=== PATIENT | female | born 1990 | race Caucasian/White ===

== ENCOUNTER 2016-12-24 08:18 | Emergency (ER) | payer OTHER ==
[2016-12-24 09:06] VITALS: BP 152/93
--- NOTE | 2016-12-24 09:11 | ED ---
Throat Pain/Nasal Congestion - HPI Summary HPI Summary: 26 yr old with onset of sneezing, sore throat, congestion a day ago. 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 She denies fever or chills. Denies SOB. She has pain moderate intensity. She has associated feeling of fatigue. No NVD. - History of Current Complaint Chief Complaint: UCRespiratory Time Seen by Provider: 12/24/16 08:44 - Allergies/Home Medications Allergies/Adverse Reactions: Allergies Allergy/AdvReac Type Severity Reaction Status Date / Time Azithromycin AdvReac Intermediate GI Upset Verified 12/24/16 08:33 [From Zithromax Z-Marky] orange food dye Allergy Headache Uncoded 12/24/16 08:34 potential peanut Allergy See Comment Uncoded 12/24/16 08:34 Home Medications: Home Medications Albuterol HFA INHALER* [Ventolin HFA Inhaler*] 2 puff INH Q12H PRN 12/24/16 [ History Confirmed 12/24/16] Ascorbic Acid TAB* [Vitamin C TAB*] 500 mg PO ONCE 12/24/16 [History Confirmed 12/24/16] Loratadine [Alavert] 10 mg PO DAILY 12/24/16 [History Confirmed 12/24/16] Omeprazole CAP* [Prilosec CAP* 20 MG] 10 mg PO DAILY 12/24/16 [History Confirmed 12/24/16] Pseudophed D 1 tab PO Q12H PRN 12/24/16 [History Confirmed 12/24/16] PMH/Surg Hx/FS Hx/Imm Hx GI History: Denies: Hx Gall Bladder Disease, Hx Gastrointestinal Bleed, Hx Urosepsis History: Denies: Hx Kidney Stones, Hx Renal Disease - Surgical History Surgery Procedure, Year, and Place: dental, right ulnar nerve Infectious Disease History: Yes Infectious Disease History: Reports: Hx of Known/Suspected MRSA - hip [facility] Denies: Hx Clostridium Difficile, Hx Hepatitis, Hx Human Immunodeficiency Virus (HIV), Hx Shingles, Hx Tuberculosis, Hx Known/Suspected VRE, Hx Known/ Suspected VRSA, History Other Infectious Disease, Traveled Outside the [place] in Last 30 Days - Family History Known Family History: Positive: Other - no FH GI disorders - Social History Alcohol Use: Occasionally Substance Use Type: Reports: None Smoking Status (MU): Never Smoked Tobacco Review of Systems Positive: Fatigue. Negative: Fever Positive: Sore Throat, Nasal Discharge All Other Systems Reviewed And Are Negative: Yes Physical Exam Triage Information Reviewed: Yes Vital Signs On Initial Exam: Initial Vitals Temp Pulse Resp BP Pulse Ox 98.1 F 109 20 152/93 100 12/24/16 08:24 12/24/16 08:24 12/24/16 08:24 12/24/16 08:24 12/24/16 08:24 Vital Signs Reviewed: Yes Appearance: Positive: Well-Appearing, No Pain Distress Skin: Positive: Skin Color Reflects Adequate Perfusion Head/Face: Positive: Normal Head/Face Inspection Eyes: Positive: EOMI ENT: Positive: Normal ENT inspection, Pharynx normal, Nasal congestion, TMs normal Neck: Positive: Supple, Nontender. Negative: Nuchal Rigidity Respiratory/Lung Sounds: Positive: Clear to Auscultation, Breath Sounds Present Cardiovascular: Positive: RRR. Negative: Murmur Abdomen Description: Positive: Nontender Musculoskeletal: Positive: Strength/ROM Intact Neurological: Positive: Sensory/Motor Intact, Alert, Oriented to Person Place, Time, CN Intact II-III, Speech Normal Psychiatric: Positive: Normal - Indra Coma Scale Best Eye Response: 4 - Spontaneous Best Motor Response: 6 - Obeys Commands Best Verbal Response: 5 - Oriented Diagnostics - Vital Signs Vital Signs Temp Pulse Resp BP Pulse Ox 12/24/16 08:24 98.1 F 109 20 152/93 100 - Laboratory Lab Statement: Any lab studies that have been ordered have been reviewed, and results considered in the medical decision making process. EENT Course/Dx - Course Course Of Treatment: 26 yr old with URI symptoms. Rapid strep done. negative - Diagnoses Provider Diagnoses: Upper respiratory infection Discharge - Discharge Plan Condition: Good Disposition: HOME Patient Education Materials: Upper Respiratory Infection (ED) Forms: *Work Release Referrals: Maya Neely MD [Primary Care Provider] -
== END 2016-12-24 09:56 | disposition home or self-care (01) ==
LOC: UCCORT 08:18
DX: J06.9 Acute upper respiratory infection, unspecified (principal); Z88.1 Allergy status to other antibiotic agents; Z91.010 Allergy to peanuts; Z91.018 Allergy to other foods
CPT/HCPCS: 87651; 99211; G0463

== ENCOUNTER 2018-09-27 07:15 | Emergency (ER) | payer BC ==
--- NOTE | 2018-09-27 07:46 | UC ---
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 No vomiting, keeping fluids down. Hurts to turn her neck. 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 Hx of migraines, both cluster and otherwise. She feels this is a cluster h/a. Last cluster has been several years. Today sx aggravated by R sided upper back and R neck pain. Unable to turn head to the R d/t pain. 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 No vis / aud changes. + light sensitivity. No fever / chills. No sob / cp / palpitations. No GI issues, although feels like nausea. No p/d/w. No rash. - History of Current Complaint Chief Complaint: UCHeadache Stated Complaint: NAUSEA HEADACHE FEVER Time Seen by Provider: 09/27/18 07:44 Hx Obtained From: Patient Hx Last Menstrual Period: implant Pain Intensity: 5 - Allergy/Home Medications Allergies/Adverse Reactions: Allergies Allergy/AdvReac Type Severity Reaction Status Date / Time azithromycin Allergy GI Upset Verified 09/27/18 07:28 orange food dye Allergy Headache Uncoded 09/27/18 07:28 potential peanut Allergy See Comment Uncoded 09/27/18 07:28 Home Medications: Home Medications Rizatriptan Benzoate [Rizatriptan Benzoate Odt] 5 mg PO DAILY PRN 09/27/18 [ History Confirmed 09/27/18] raNITIdine HCl [Ranitidine HCl] 150 mg PO DAILY PRN 09/27/18 [History Confirmed 09/27/18] PMH/Surg Hx/FS Hx/Imm Hx Previously Healthy: Yes - see hpi - Surgical History Surgical History: Yes Surgery Procedure, Year, and Place: dental, right ulnar nerve - Family History Known Family History: Positive: Other - no FH GI disorders - Social History Occupation: Employed Full-time Alcohol Use: Rare Substance Use Type: None Smoking Status (MU): Never Smoked Tobacco Review of Systems All Other Systems Reviewed And Are Negative: Yes Constitutional: Positive: Negative Skin: Positive: Negative Eyes: Positive: Other - see hpi ENT: Positive: Other - see hpi Respiratory: Positive: Negative Cardiovascular: Positive: Negative Gastrointestinal: Positive: Negative Genitourinary: Positive: Negative Motor: Positive: Negative Neurovascular: Positive: Negative Musculoskeletal: Positive: Negative Neurological: Positive: Negative Psychological: Positive: Negative Is Patient Immunocompromised?: No Physical Exam Triage Information Reviewed: Yes Appearance: Well-Nourished, Other: - pleasant, sitting up Vital Signs: Initial Vital Signs Temp 98.1 F 09/27/18 07:21 Pulse 99 09/27/18 07:21 Resp 16 09/27/18 07:21 BP 128/83 09/27/18 07:21 Pulse Ox 98 09/27/18 07:21 Vital Signs Reviewed: Yes Eye Exam: Normal - perrla, eomi, subj pain worse with looking left and upwards. fundi grossly nad, nondilated double at approx 7 inches ENT: Positive: Pharynx normal, TM dull Neck exam: Other - Tender and spasm R lat neck and R upper back, extending just above shoulder blades. Without point moni tenderness elicited but + spasm + torticollis to the Right. Ax N sensation LT present Respiratory Exam: Normal Respiratory: Positive: Chest non-tender, Lungs clear, Normal breath sounds, No respiratory distress, No accessory muscle use Cardiovascular Exam: Normal Cardiovascular: Positive: RRR, No Murmur, Pulses Normal, Brisk Capillary Refill Abdominal Exam: Normal Abdomen Description: Positive: Nontender Musculoskeletal Exam: Normal Musculoskeletal: Positive: Strength Intact, ROM Intact Neurological Exam: Other - nonfocal, with the exception of h/a as described above H/a is R sided. CN 1-12 present (incl smell) DTR's BR/ R / P equal Gait slow steady F-N-F ok bilat No tremor appreciated Psychological Exam: Normal - conversing easily and appriately Course/Dx - Course Course Of Treatment: IV NS, ketoralac, zofran CT brain / neck / thoracic - see [facility] report HAs BCP implant x 1 year. Feels better s/p intervention Will f/u pcp and neurologist (Dr. Simon) last seen approx 1 mo ago. 09:35 reports available. feels better. IVF's still running. 10:05 receheck. Feels better, IV complete. Reviewed coa / tx plan. Questions as posed answered to the best of my ability. - Diagnoses Provider Diagnosis: Migraine, Torticollis Discharge - Sign-Out/Discharge Documenting (check all that apply): Patient Departure All imaging exams completed and their final reports reviewed: Yes - Discharge Plan Condition: Improved Disposition: HOME Patient Education Materials: Migraine Headache (ED), Spasmodic Torticollis (ED) Forms: *Work Release Referrals: Jarrett Vick NP [Primary Care Provider] - Drew Simon MD [Medical Doctor] - Additional Instructions: Hydrate. Soft collar as needed for comfort. Please go to the Emergency Department for ANY problems, worse or new symptoms ( including albeit not limited to worse or new pain, fever, vision changes, rash) Follow up with your primary care provider - next 1-2 weeks for recheck and results review (ex CT - gallbladder calcificifications) Follow up with your neurologist - call to let him know how you are doing. Follow up per routine. - Billing Disposition and Condition Condition: IMPROVED Disposition: Home
[2018-09-27] MEDS ORDERED: NS 0.9% 1000 ML** 1,000 ML IV ONE (08:04)
[2018-09-27] MEDS ORDERED: Ketorolac INJ* 60 MG/2 ML VIAL IV PUSH ONE (08:04)
[2018-09-27] MEDS ORDERED: Ondansetron INJ* 2 MG/ML VIAL IV ONE (08:05)
[2018-09-27 09:44] VITALS: BP 114/68
== END 2018-09-27 10:20 | disposition home or self-care (01) ==
LOC: UCEAST 07:15
DX: G43.909 Migraine, unspecified, not intractable, without status migrainosus (principal); M43.6 Torticollis
CPT/HCPCS: 70450; 72125; 72128; 96360; 96374; 96375; 99213; G0463; J1885; J2405

== ENCOUNTER 2019-04-03 07:13 | Emergency (ER) | payer BC ==
[2019-04-03 07:33] VITALS: BP 144/80
--- NOTE | 2019-04-03 07:51 | UC ---
UC General HPI - HPI Summary HPI Summary: 28yo with onset of nausea, vomiting and diarrhea last evening several hours after eating tuna fish and pizza in a hospital cafetaria. She vomited twice, second time vomiting bile, and has had frequent diarrhea stools overnight, with mucous but without blood. She reports RUQ pain, no fever. Hx of reflux but does not have a hx of gallbladder disease. Currently using omeprazole for reflux, but use is irregular. Voided a concentrated urine here, but also voided at 06:30 this morning. - History of Current Complaint Chief Complaint: UCGeneralIllness Stated Complaint: FLU LIKE SYMPTOMS Time Seen by Provider: 04/03/19 07:39 Hx Last Menstrual Period: implant Onset/Duration: Sudden Onset, Lasting Hours - 12 Onset Severity: Mild Current Severity: Mild Pain Intensity: 6 - Allergy/Home Medications Allergies/Adverse Reactions: Allergies Allergy/AdvReac Type Severity Reaction Status Date / Time azithromycin Allergy GI Upset Verified 09/27/18 07:28 orange food dye Allergy Headache Uncoded 09/27/18 07:28 potential peanut Allergy See Comment Uncoded 09/27/18 07:28 PMH/Surg Hx/FS Hx/Imm Hx Previously Healthy: Yes GI/ History: Gastroesophageal Reflux Neurological History: Migraine - Surgical History Surgical History: Yes Surgery Procedure, Year, and Place: dental, right ulnar nerve - Family History Known Family History: Positive: Hypertension, Diabetes, Other - mother currently hospitalized with ulcerative colitis. - Social History Occupation: Employed Full-time Lives: With Family Alcohol Use: Rare Substance Use Type: None Smoking Status (MU): Never Smoked Tobacco Review of Systems All Other Systems Reviewed And Are Negative: Yes Constitutional: Positive: Fatigue Skin: Positive: Negative Eyes: Positive: Negative ENT: Positive: Negative Respiratory: Positive: Negative Cardiovascular: Positive: Negative Gastrointestinal: Positive: Abdominal Pain, Vomiting, Diarrhea, Nausea Genitourinary: Positive: Negative Motor: Positive: Negative Neurovascular: Positive: Negative Musculoskeletal: Positive: Negative Neurological: Positive: Negative Psychological: Positive: Negative Is Patient Immunocompromised?: No Physical Exam Triage Information Reviewed: Yes Appearance: Ill-Appearing - looks pale and mildly unwell, no jaundice Vital Signs: Initial Vital Signs Temp 97.6 F 04/03/19 07:28 Pulse 112 04/03/19 07:28 Resp 16 04/03/19 07:28 BP 144/80 04/03/19 07:28 Pulse Ox 98 04/03/19 07:28 Eyes: Positive: Conjunctiva Clear ENT: Positive: Pharynx normal Respiratory: Positive: Lungs clear, Normal breath sounds Cardiovascular: Positive: RRR, No Murmur Abdomen Description: Positive: No Organomegaly, Soft, Other: - mild tenderness of the liver edge. Negative: Distended, Guarding, Splenomegaly Musculoskeletal Exam: Normal Neurological: Positive: Alert, Muscle Tone Normal Psychological Exam: Normal Skin Exam: Normal Course/Dx - Course Course Of Treatment: Clinical course is most suggestive of a viral gstroenteritis, but she has RUQ pain which could indicated gallbladder disease. At this time, she will use ondansetron for nausea and try oral rehydration at home. If she has increasing pain and persistent vomiting, she is aware to proceed to the emergency room for evaluation. - Differential Dx - Multi-Symptom Differential Diagnoses: Other - gastroentertis, cholecystitis. - Diagnoses Provider Diagnosis: Gastroenteritis Discharge ED - Sign-Out/Discharge Documenting (check all that apply): Patient Departure All imaging exams completed and their final reports reviewed: No Studies - Discharge Plan Condition: Stable Disposition: HOME Prescriptions: Ondansetron [Ondansetron Odt] 4 mg PO Q6H PRN #10 tab.rapdis PRN Reason: Nausea Patient Education Materials: Gastroenteritis (ED), Nutrition Tips for Relief of Diarrhea (ED) Forms: *Work Release Referrals: Jarrett Vick, [employer]LE[employer]ER [Primary Care Provider] - Additional Instructions: Continue oral rehydration at home taking small sips of clear fluids frequently; you can use Pedialyte, soup broth, alina az, or tea. Once you have an appetite and have not vomited for an hour, you can advance to a diarrhea diet. If you have continued abdominal pain and vomiting, please go to the emergency room for further work up. Your blood pressure is elevated today to 144/80. Please ensure a re-check of your blood pressure within several weeks. - Billing Disposition and Condition Condition: STABLE Disposition: Home
[2019-04-03] MEDS: Ondansetron ODT TAB* 4 MG PO ONE (07:56)
== END 2019-04-03 08:10 | disposition home or self-care (01) ==
LOC: UCEAST 07:13
DX: K52.9 Noninfective gastroenteritis and colitis, unspecified (principal); Z88.1 Allergy status to other antibiotic agents; Z91.09 Other allergy status, other than to drugs and biological substances; Z91.010 Allergy to peanuts
CPT/HCPCS: 99212; A9270-GY; G0463

== ENCOUNTER 2019-09-29 20:18 | Observation (INO) ==
[2019-09-29] MEDS ORDERED: NS 0.9% 1000 ml BAG 1,000 ML IV ONE (21:22)
[2019-09-29] MEDS ORDERED: Ondansetron 4 mg VIAL 2 MG/ML 2 ml VIAL IV ONE (21:22)
[2019-09-29 22:01] LABS: ABS Basophils 0.1 10^3/ul (0-0.2); ABS Eosinophils 0.3 10^3/ul (0-0.6); ABS Lymphocytes 3.1 10^3/ul (1.0-4.8); ABS Monocytes 0.4 10^3/ul (0-0.8); Eosinophil % 3.5 %; Hematocrit 41 % (35-47); Hemoglobin 13.9 g/dL (12.0-16.0); Lymphocyte % 36.5 %; Mean Corpuscular HGB Conc 34 g/dL (31-36); Mean Corpuscular Hemoglobin 29 pg (27-31); Mean Corpuscular Volume 84 fL (80-97); Mean Platelet Volume 7.6 fL (7.4-10.4); Nucleated Red Blood Cells % 0.1; Platelet Count 238 10^3/uL (150-450); Red Blood Count 4.84 10^6 /uL (3.70-4.87); Red Cell Distribution Width 14 % (10-15); White Blood Count 8.6 10^3/uL (3.5-10.8)
[2019-09-29 22:18] LABS: ALT 53 U/L (7-52); AST 27 U/L (13-39); Albumin 4.4 g/dL (3.2-5.2); Albumin/Globulin Ratio 1.4 (1-3); Alkaline Phosphatase 64 U/L (34-104); Amylase 44 U/L (29-103); Anion Gap 7 mmol/L (2-11); BUN/Creatinine Ratio 9.8 (8-20); Blood Urea Nitrogen 9 mg/dL (6-24); C Reactive Protein 4.76 mg/L (<8.01); CO2 Carbon Dioxide 26 mmol/L (22-32); Calcium 9.1 mg/dL (8.6-10.3); Chloride 106 mmol/L (101-111); EGFR African American 86.7 (>60); EGFR Non-African American 71.7 (>60); Globulin 3.1 g/dL (2-4); Glucose 107 mg/dL (70-100); Potassium 3.3 mmol/L (3.5-5.0); Sodium 139 mmol/L (135-145); Total Protein 7.5 g/dL (6.4-8.9)
[2019-09-29 22:21] LABS: INR 1.1 (0.82-1.09)
[2019-09-29 22:24] LABS: HCG Pregnancy < 0.60 mIU/mL
[2019-09-30] MEDS ORDERED: Morphine 4 MG/ML VIAL (1 ml) IV ONE (00:16)
[2019-09-30] MEDS ORDERED: Rizatriptan 5 mg TAB (NF) PO PRN (00:29)
[2019-09-30] MEDS ORDERED: Piperacillin/Tazobac ADVAN(*) 3.375 GM in NS 0.9% 100 ml BAG 100 ML IVPB ONE (00:30)
[2019-09-30] MEDS ORDERED: Zosyn per Pharmacy NOTE FOLLOW UP SCH (01:00)
[2019-09-30 01:28] LABS: Urine Appearance Cloudy; Urine Bilirubin Negative (Negative); Urine Blood 1+ (Negative); Urine Color Yellow; Urine Glucose Negative (Negative); Urine Ketones Negative (Negative); Urine Nitrite Negative (Negative); Urine Protein Negative (Negative); Urine Specific Gravity 1.009 (1.010-1.030); Urine Urobilinogen Negative (Negative)
[2019-09-30 01:31] LABS: Urine Bacteria 1+ (Absent); Urine Red Blood Cell Trace(0-2/hpf) (Absent); Urine Squamous Epithelial Cell Present (Absent); Urine White Blood Cell Trace(0-5/hpf) (Absent)
[2019-09-30] MEDS ORDERED: Albuterol HFA INHALER 8 gm MDI INH PRN (01:56)
[2019-09-30] MEDS: NS 0.9% 1000 ml BAG 1,000 ML IV SCH ×3 (03:09→22:18)
[2019-09-30] MEDS: KCL 10 MEQ/50 ML IVPREMIX 10 MEQ/50 ML BAG IV SCH ×3 (03:23→05:50)
[2019-09-30] MEDS: Ondansetron 4 mg VIAL 2 MG/ML 2 ml VIAL IV PRN ×2 (04:40→10:44)
[2019-09-30 05:38] LABS: ABS Basophils 0.1 10^3/ul (0-0.2); ABS Eosinophils 0.3 10^3/ul (0-0.6); ABS Lymphocytes 2.8 10^3/ul (1.0-4.8); ABS Monocytes 0.4 10^3/ul (0-0.8); Eosinophil % 4.3 %; Hematocrit 41 % (35-47); Hemoglobin 13.4 g/dL (12.0-16.0); Lymphocyte % 34.5 %; Mean Corpuscular HGB Conc 33 g/dL (31-36); Mean Corpuscular Hemoglobin 28 pg (27-31); Mean Corpuscular Volume 86 fL (80-97); Mean Platelet Volume 7.8 fL (7.4-10.4); Platelet Count 206 10^3/uL (150-450); Red Blood Count 4.73 10^6 /uL (3.70-4.87); Red Cell Distribution Width 13 % (10-15); White Blood Count 8.2 10^3/uL (3.5-10.8)
[2019-09-30] MEDS: Heparin 5000 UNITS/ML VIAL(*) 1 ml vial SUBCUT SCH ×3 (05:52→22:23)
[2019-09-30 05:55] LABS: Albumin 3.8 g/dL (3.2-5.2); Albumin/Globulin Ratio 1.4 (1-3); BUN/Creatinine Ratio 8.1 (8-20); Calcium 8.4 mg/dL (8.6-10.3); EGFR African American 93.7 (>60); EGFR Non-African American 77.5 (>60); Globulin 2.8 g/dL (2-4); Potassium 3.8 mmol/L (3.5-5.0); Total Bilirubin 0.8 mg/dL (0.2-1.0); Total Protein 6.6 g/dL (6.4-8.9)
[2019-09-30] MEDS: ZOSYN 3.375 GM Q8H per EXTENDED INFUSION IV SCH ×3 (07:10→22:18)
[2019-09-30] MEDS ORDERED: Prochlorperazine 5 mg/ml 2 ml VIAL (10 mg) IV PRN (13:30)
[2019-10-01] MEDS ORDERED: Rocuronium 50 mg VIAL 10 mg/ml 5 ml VIAL (50 mg) IV SCH ×2
[2019-10-01] MEDS ORDERED: Lidocaine 2% PF 5 ML VIAL IV SCH ×2
[2019-10-01] MEDS ORDERED: Succinylcholine 200 mg VIAL 20 mg/ml 10 ml VIAL (200 mg) IV SCH ×2
[2019-10-01] MEDS ORDERED: Ondansetron 4 mg VIAL 2 MG/ML 2 ml VIAL IV SCH
[2019-10-01] MEDS ORDERED: Midazolam 2 mg/2 ml VIAL 1 mg/ml 2 ml VIAL (2 mg) IV SLOW PU SCH
[2019-10-01] MEDS ORDERED: Acetaminophen IV 1 GM/100ML 100 ML IVPB SCH
[2019-10-01] MEDS ORDERED: Dexamethasone IV 4 MG/ML VIAL 1 ml VIAL IV SLOW PU SCH
[2019-10-01] MEDS ORDERED: Propofol 10 MG/ML 20 ML BTL IV SCH ×2
[2019-10-01] MEDS ORDERED: fentaNYL 100 mcg/2 ml 50 MCG/ML VIAL IV SCH
[2019-10-01] MEDS: Heparin 5000 UNITS/ML VIAL(*) 1 ml vial SUBCUT SCH ×3 (05:57→15:29)
[2019-10-01] MEDS: ZOSYN 3.375 GM Q8H per EXTENDED INFUSION IV SCH ×3 (05:57→15:43)
[2019-10-01] MEDS: NS 0.9% 1000 ml BAG 1,000 ML IV SCH ×2 (08:30→20:37)
[2019-10-01] MEDS ORDERED: Bupivacaine 0.25% EPI 200,000 30 ML SDV ONE (12:59)
[2019-10-01] MEDS ORDERED: fentaNYL 100 mcg/2 ml 50 MCG/ML VIAL IV PRN (14:00)
[2019-10-01] MEDS ORDERED: Naloxone 0.4 mg VIAL 0.4 mg/ml 1 ml VIAL IV PRN (14:00)
[2019-10-01] MEDS ORDERED: fentaNYL 100 mcg/2 ml 50 MCG/ML VIAL ONE (14:55)
[2019-10-01] MEDS: oxyCODONE/Acetamin 5/325 mg TAB PO PRN ×2 (18:12→21:53)
[2019-10-02] MEDS: oxyCODONE/Acetamin 5/325 mg TAB PO PRN ×2 (01:59→06:46)
[2019-10-02] MEDS: NS 0.9% 1000 ml BAG 1,000 ML IV SCH (06:41)
[2019-10-02 08:06] VITALS: BP 127/66
[2019-10-03] MEDS ORDERED: Scopolamine PATCH Remove NOTE PATCH OFF SCH (19:00)
== END 2019-10-02 09:52 | disposition home or self-care (01) ==
LOC: SSU 20:18 → ED 20:18 → SSU 09-30 02:48
PROVIDERS: ADMIT Internal Medicine; ATTEND Surgery